=== PATIENT | female | born 1960 | race Caucasian/White ===

== ENCOUNTER 2019-01-28 10:02 | Day surgery (SDC) | payer BC ==
[~2019-01-28] VITALS: Ht 154.9 cm; Wt 42.3 kg
[2019-01-28 10:48] VITALS: Ht 154.9 cm; Wt 42.3 kg
[2019-01-28] MEDS ORDERED: VALSARTAN (10:54)
[2019-01-28] MEDS ORDERED: VENTOLIN INH (10:54)
[2019-01-28] MEDS ORDERED: ADVAIR (10:54)
[2019-01-28 11:00] VITALS: BP 154/88; PULSE 92; RESP 22
[2019-01-28] MEDS ORDERED: FENTAnyl 50 MCG/ML VIAL ONE (11:41)
[2019-01-28] MEDS ORDERED: MIDAZOLAM 1 MG/ML 2 ML INJ ONE ×2 (11:41)
== END 2019-01-28 12:31 | disposition home or self-care (01) ==
LOC: GIL 10:02
PROVIDERS: ATTEND Internal Medicine Gastroenterology
DX: Z12.11 Encounter for screening for malignant neoplasm of colon (principal); K62.1 Rectal polyp
CPT/HCPCS: 45380; 88305; J2250; J3010; Z7610